=== PATIENT | male | born 1990 | race American Indian/Alaskan Native ===

== ENCOUNTER 2017-09-07 18:22 | Emergency (ER) | payer OTHER ==
[2017-09-07 18:47] VITALS: BP 126/61
[2017-09-07 21:02] LABS: Bilirubin,Urine NEG (Negative); Blood,Urine NEG (Negative); Ketones,Urine TR mg/dL (Negative); Leukocyte Esterase,Urine NEG (Negative); Mucus,Urine 2+ /HPF; Nitrite,Urine NEG (Negative)
--- NOTE | 2017-09-07 21:16 | Emergency Department Report ---
ED ENT HPI - General Chief complaint: Earache Stated complaint: SORE THROAT, EAR PAIN Time Seen by Provider: 09/07/17 20:45 Source: patient Mode of arrival: Ambulatory Limitations: No Limitations - History of Present Illness Initial comments: This is 26-year-old male nontoxic, well nourished in appearance, no acute signs of distress presents to the ED with c/o of right earache and thrush. Patient is complaining of earache x3 days. Patient describes pain as aching with level of 8/10. Patient stated has thrush and has been diagnosed 2 months and was treated with unknown oral liquid but stated it came back. Patient denies hearing loss, ear discharge, mastoid tenderness, fever, chills, nausea, vomiting, headache, stiff neck, chest pain, shortness of breath, abdominal pain, penile discharge. Patient also stated he wanted to be tested for STD but stated he is not concerned about STD and would like not to be treated empirically. Patient denies any allergies. Patient denies past medical history. Patient stated had been tested for HIV last month with normal results. MD complaint: ear pain -: days(s) (3) Location: R ear Severity: mild Severity scale (0 -10): 8 Quality: aching Consistency: constant Improves with: none Worsens with: none Associated Symptoms: denies: fever, cough, gum swelling, toothache, pain with swallowing, sore throat, tinnitus, hearing loss, discharge from ear, rhinorrhea - Related Data Previous Rx's Medication Instructions Recorded Last Taken Type Amoxicillin [Amoxicillin TAB] 875 mg PO BID #20 tablet 09/07/17 Unknown Rx Nystatin 500,000 unit PO 4XD 10 Days 09/07/17 Unknown Rx oral.susp Allergies Allergy/AdvReac Type Severity Reaction Status Date / Time No Known Allergies Allergy Unverified 09/07/17 18:41 ED Dental HPI - General Chief complaint: Earache Stated complaint: SORE THROAT, EAR PAIN Time Seen by Provider: 09/07/17 20:45 Source: patient Mode of arrival: Ambulatory Limitations: No Limitations - Related Data Previous Rx's Medication Instructions Recorded Last Taken Type Amoxicillin [Amoxicillin TAB] 875 mg PO BID #20 tablet 09/07/17 Unknown Rx Nystatin 500,000 unit PO 4XD 10 Days 09/07/17 Unknown Rx oral.susp Allergies Allergy/AdvReac Type Severity Reaction Status Date / Time No Known Allergies Allergy Unverified 09/07/17 18:41 ED Review of Systems ROS: Stated complaint: SORE THROAT, EAR PAIN Other details as noted in HPI Constitutional: denies: chills, fever Eyes: eye pain. denies: eye discharge, vision change ENT: denies: ear pain, throat pain Respiratory: denies: cough, shortness of breath, wheezing Cardiovascular: denies: chest pain, palpitations Endocrine: no symptoms reported Gastrointestinal: denies: abdominal pain, nausea, diarrhea Genitourinary: denies: urgency, dysuria Musculoskeletal: denies: back pain, joint swelling, arthralgia Skin: denies: rash, lesions Neurological: denies: headache, weakness, paresthesias Psychiatric: denies: anxiety, depression Hematological/Lymphatic: denies: easy bleeding, easy bruising ED Past Medical Hx - Past Medical History Previous Medical History?: No - Surgical History Past Surgical History?: No - Social History Smoking Status: Never Smoker Substance Use Type: None - Medications Home Medications: Home Medications Medication Instructions Recorded Confirmed Last Taken Type Amoxicillin [Amoxicillin TAB] 875 mg PO BID #20 tablet 09/07/17 Unknown Rx Nystatin 500,000 unit PO 4XD 10 Days 09/07/17 Unknown Rx oral.susp ED Physical Exam - General Limitations: No Limitations General appearance: alert, in no apparent distress - Head Head exam: Present: atraumatic, normocephalic, normal inspection - Eye Eye exam: Present: normal appearance, PERRL, EOMI. Absent: scleral icterus, conjunctival injection, nystagmus, periorbital swelling, periorbital tenderness Pupils: Present: normal accommodation - ENT ENT exam: Present: normal exam, normal orophraynx, mucous membranes moist, normal external ear exam - Expanded ENT Exam Expanded Ear exam: Present: normal external inspection TM/Canal exam: Erythema: Right TM, Bulging: Right TM Mouth exam: Present: normal external inspection, tongue normal. Absent: drooling, trismus, muffled voice, tongue elevation, laceration Teeth exam: Present: normal inspection Throat exam: Positive: normal inspection. Negative: tonsillar erythema, tonsillomegaly, tonsillar exudate, R peritonsillar mass, L peritonsillar mass - Neck Neck exam: Present: normal inspection, full ROM. Absent: tenderness, meningismus, lymphadenopathy, thyromegaly - Respiratory Respiratory exam: Present: normal lung sounds bilaterally. Absent: respiratory distress, wheezes, rales, rhonchi, stridor, chest wall tenderness, accessory muscle use, decreased breath sounds, prolonged expiratory - Cardiovascular Cardiovascular Exam: Present: regular rate, normal rhythm, normal heart sounds. Absent: bradycardia, tachycardia, irregular rhythm, systolic murmur, diastolic murmur, rubs, gallop - GI/Abdominal GI/Abdominal exam: Present: soft, normal bowel sounds. Absent: distended, tenderness, guarding, rebound, rigid, diminished bowel sounds - Rectal Rectal exam: Present: deferred - Extremities Exam Extremities exam: Present: normal inspection, full ROM, normal capillary refill. Absent: tenderness, pedal edema, joint swelling, calf tenderness - Back Exam Back exam: Present: normal inspection, full ROM. Absent: tenderness, CVA tenderness (R), CVA tenderness (L), muscle spasm, paraspinal tenderness, vertebral tenderness, rash noted - Neurological Exam Neurological exam: Present: alert, oriented X3 - Psychiatric Psychiatric exam: Present: normal affect, normal mood - Skin Skin exam: Present: warm, dry, intact, normal color. Absent: rash - Other Other exam information: No mastoid tenderness or tragus tenderness. No ear discharge. ED Course Vital Signs 09/07/17 18:44 Temperature 98.5 F Pulse Rate 66 Respiratory 18 Rate Blood Pressure 126/61 O2 Sat by Pulse 96 Oximetry - Reevaluation(s) Reevaluation #1: 09/07/17 21:29 Patient is speaking in full sentences with no signs of distress noted. ED Medical Decision Making - Medical Decision Making This is a 26-year-old male that presents with Thrush and right otitis media. Patient is stable and was examined by me. Patient received amoxicillin and nystain at discharge. Patient denies any history of HIV. Patient was instructed to follow up with a primary care doctor/ENT 3-5 days for further evaluation if symptoms worsen and continue presented to emergency room as soon as possible. At time time of discharge, the patient does not seem toxic or ill in appearance. No acute signs of distress noted. Patient agrees to discharge treatment plan of care. No further questions noted by the patient. Critical care attestation.: If time is entered above; I have spent that time in minutes in the direct care of this critically ill patient, excluding procedure time. ED Disposition Clinical Impression: Candidiasis of mouth Otitis media Qualifiers: Otitis media type: unspecified Laterality: right Qualified Code(s): H66.91 - Otitis media, unspecified, right ear Disposition: DC-01 TO HOME OR SELFCARE Is pt being admited?: No Does the pt Need Aspirin: No Condition: Stable Instructions: Otitis Media (ED), Oral Candidiasis (ED), Amoxicillin (By mouth) , Nystatin (By mouth) Additional Instructions: Follow-up with a primary care doctor /ENT doctor in 3-5 days or if symptoms worsen and continue return to emergency room as soon as possible. Prescriptions: Amoxicillin [Amoxicillin TAB] 875 mg PO BID #20 tablet Nystatin 500,000 unit PO 4XD 10 Days oral.susp Referrals: PRIMARY CARE, [Primary Care Provider] - 3-5 Days RICKY PETERSEN MD [Staff Physician] - 3-5 Days BOB SHIPMAN MD [Staff Physician] - 3-5 Days [facility] [Outside] - 3-5 Days [facility] [Outside] - 3-5 Days Forms: Work/School Release Form(ED)
== END 2017-09-07 21:39 | disposition home or self-care (01) ==
LOC: ED 18:22
DX: H66.91 Otitis media, unspecified, right ear (principal); B37.0 Candidal stomatitis
CPT/HCPCS: 81001; 87086; 87591; 99283